=== PATIENT | female | born 1975 | race African-American/Black ===

== ENCOUNTER 2022-03-11 09:22 | Inpatient (IN) | payer MEDICAID, OTHER ==
[~2022-03-11] VITALS: Ht 170.2 cm; Wt 136.1 kg
[2022-03-11 10:13] LABS: BASOPHILS % 0.4 % (0.0-2.0); EOSINOPHILS % 2.3 % (0.0-5.0); HEMATOCRIT. 39.6 % (36.0-48.0); HEMOGLOBIN. 12.8 g/dL (12.0-16.0); LYMPHOCYTES % 13.6 % (20.0-50.0); MEAN CORPUSCULAR HEMOGLOBIN 26.7 pg (28.0-32.0); MEAN CORPUSCULAR VOLUME 82.5 fL (81.0-99.0); MEAN PLATELET VOLUME 9.3 fl (7.4-10.4); MONOCYTES % 6.6 % (2.0-8.0); NEUTROPHILS % 77.1 % (40.0-76.0); PLATELET 248 x1000/uL (130-400); RED CELL DISTRIBUTION WIDTH 14.3 % (11.6-14.6)
[2022-03-11] MEDS ORDERED: MORPHINE SULFATE 4 MG/ML CPJ (NOT FOR IM USE) IV ONE ×2 (10:15→12:30)
[2022-03-11] MEDS ORDERED: ONDANSETRON HCL 4MG/2ML INJ IV ONE (10:15)
[2022-03-11 10:18] LABS: CHLORIDE 104 mEq/L (98-107)
[2022-03-11 10:57] LABS: HCG SCREEN NEGATIVE
[2022-03-11] MEDS ORDERED: IOHEXOL-350 100 ML BOTTLE ONE (11:44)
[2022-03-11] MEDS ORDERED: HYDRALAZINE 20MG/ML VIAL IV ONE (12:00)
[2022-03-11] MEDS ORDERED: ONDANSETRON HCL 4MG/2ML INJ IV PRN (14:45)
[2022-03-11 16:00] VITALS: BP 152/89
[2022-03-11] MEDS: AMLODIPINE 10MG TABLET PO SCH (16:14)
[2022-03-11 17:00] VITALS: BP 152/89
[2022-03-11] MEDS: ACETAMINOPHEN 325MG TABLET PO PRN (17:54)
[2022-03-11] MEDS ORDERED: HYDR25TA MT (17:59)
[2022-03-11] MEDS: METOPROLOL TARTRATE 50MG TABLET PO SCH (18:53)
[2022-03-11 20:00] VITALS: BP 155/92
[2022-03-11] MEDS: HYDROCODONE/ACETAMINOPHEN 10/325MG TABLET PO PRN (20:12)
[2022-03-12] VITALS: BP 167/101
[2022-03-12] MEDS: ACETAMINOPHEN 325MG TABLET PO PRN (01:30)
[2022-03-12 04:00] VITALS: BP 113/78
[2022-03-12 08:00] VITALS: BP 125/82
[2022-03-12] MEDS: HYDROCODONE/ACETAMINOPHEN 10/325MG TABLET PO PRN ×3 (10:07→18:51)
[2022-03-12] MEDS: AMLODIPINE 10MG TABLET PO SCH (10:07)
[2022-03-12] MEDS: METOPROLOL TARTRATE 50MG TABLET PO SCH ×2 (10:08→21:51)
[2022-03-12 12:00] VITALS: BP 129/79
[2022-03-12] MEDS ORDERED: KETOROLAC 30MG/ML VIAL IV PRN (12:45)
[2022-03-12] MEDS ORDERED: NALOXONE HCL 0.4MG/ML VIAL IV PRN (13:00)
[2022-03-12 13:23] LABS: BASOPHILS % 0.6 % (0.0-2.0); EOSINOPHILS % 2.3 % (0.0-5.0); HEMATOCRIT. 37.7 % (36.0-48.0); HEMOGLOBIN. 12.4 g/dL (12.0-16.0); LYMPHOCYTES % 12.1 % (20.0-50.0); MEAN CORPUSCULAR HEMOGLOBIN 27.2 pg (28.0-32.0); MEAN CORPUSCULAR VOLUME 82.4 fL (81.0-99.0); MONOCYTES % 10.1 % (2.0-8.0); NEUTROPHILS % 74.9 % (40.0-76.0); PLATELET 231 x1000/uL (130-400); RED BLOOD CELL COUNT 4.58 mill/uL (4.2-5.4); RED CELL DISTRIBUTION WIDTH 14.8 % (11.6-14.6)
[2022-03-12 13:32] LABS: CHLORIDE 104 mEq/L (98-107)
[2022-03-12 16:00] VITALS: BP 127/86
[2022-03-12] MEDS ORDERED: POTASSIUM CHLORIDE 20MEQ TABLET SR PO NR (16:30)
[2022-03-12 19:47] LABS: CLARITY URINE CLEAR (CLEAR); COLOR URINE YELLOW (YELLOW); KETONES URINE NEGATIVE (NEGATIVE); LEUKOCYTE ESTERASE URINE NEGATIVE (NEGATIVE); NITRITE URINE NEGATIVE (NEGATIVE); OCCULT BLOOD URINE 1+ (NEGATIVE); PH URINE 6.5 (4.5-8.0); PROTEIN URINE NEGATIVE (NEGATIVE); SPECIFIC GRAVITY URINE 1.012 (1.005-1.030)
[2022-03-12 20:00] VITALS: BP 158/62
[2022-03-12 20:05] LABS: *AMPHETAMINES SCREEN URINE NEGATIVE (NEGATIVE); *BARBITURATES SCREEN URINE NEGATIVE (NEGATIVE); *BENZODIAZEPINES SCREEN URINE NEGATIVE (NEGATIVE); *COCAINE SCREEN URINE NEGATIVE (NEGATIVE); METHADONE URINE SCREEN NEGATIVE (NEGATIVE); PHENCYCLIDINE URINE SCREEN NEGATIVE (NEGATIVE)
[2022-03-12 20:11] LABS: CANNABINOID URINE SCREEN PRESUMTIVE POSITIVE (NEGATIVE); OPIATES URINE SCREEN PRESUMTIVE POSITIVE (NEGATIVE)
[2022-03-13 04:00] VITALS: BP 163/88
[2022-03-13] MEDS: HYDROCODONE/ACETAMINOPHEN 10/325MG TABLET PO PRN ×2 (04:49→09:48)
[2022-03-13 08:00] VITALS: BP 140/83
[2022-03-13] MEDS ORDERED: METO-539 PO (08:49)
[2022-03-13] MEDS ORDERED: AMLO10TA80 PO (08:49)
[2022-03-13] MEDS: AMLODIPINE 10MG TABLET PO SCH (09:48)
[2022-03-13] MEDS: METOPROLOL TARTRATE 50MG TABLET PO SCH (09:49)
[2022-03-13 10:53] VITALS: BP 140/83
== END 2022-03-13 11:11 | disposition home or self-care (01) | DRG 199 ==
LOC: ER 09:22 → MICUSO 12:37 → EDBEDREQSVC 12:39 → EDBEDREQTM 12:39 → EDBEDREQ 12:39 → 7EST 16:38
PROVIDERS: ADMIT Internal Medicine; ATTEND Internal Medicine
DX: I16.0 Hypertensive urgency (principal); E44.1 Mild protein-calorie malnutrition; E66.9 Obesity, unspecified; I10 Essential (primary) hypertension; Z68.42 Body mass index [BMI] 45.0-49.9, adult
CPT/HCPCS: 36415; 71045; 71275; 80048; 80053; 80305; 81003; 83880; 84145; 84484; 84703; 85025; 93005; 99285; J0360; J2270; J2405; Q9967